=== PATIENT | male | born 1975 | race Caucasian/White ===

== ENCOUNTER 2017-03-31 23:14 | Emergency (ER) | payer BC ==
[2017-03-31 23:28] VITALS: BP 134/94
--- NOTE | 2017-03-31 23:28 | EDM.PDOC ---
ED HPI GENERAL MEDICAL PROBLEM - General Chief Complaint: Upper Extremity Injury/Pain Stated Complaint: HAD CORTIZONE SHOT IN LEFT ELBOW- EXTREME PAIN Time Seen by Provider: 03/31/17 23:17 - History of Present Illness INITIAL COMMENTS - FREE TEXT/NARRATIVE: HISTORY AND PHYSICAL: History of present illness: Patient's 41-year-old male status post cortisone injection to his elbows bilaterally he's had these many times in the past he now has swelling ecchymosis that he is not experiencing some prior ones in his left elbow with increased pain. Review of systems: As per history of present illness and below otherwise all systems reviewed and negative. Past medical history: As per history of present illness and as reviewed below otherwise noncontributory. Surgical history: As per history of present illness and as reviewed below otherwise noncontributory. Social history: No reported history of drug or alcohol abuse. Family history: As per history of present illness and as reviewed below otherwise noncontributory. Physical exam: HEENT: Atraumatic, normocephalic, pupils reactive, negative for conjunctival pallor or scleral icterus, mucous membranes moist, throat clear, neck supple, nontender, trachea midline. Lungs: Clear to auscultation, breath sounds equal bilaterally, chest nontender. Heart: S1S2, regular, negative for clicks, rubs, or JVD. Abdomen: Soft, nondistended, nontender. Negative for masses or hepatosplenomegaly. Negative for costovertebral tenderness. Pelvis: Stable nontender. Genitourinary: Deferred. Rectal: Deferred. Extremities: Left elbow with some small ecchymosis in the region of the injection swelling and minimal range of motion secondary to pain no significant erythema no crepitation or point tenderness right elbow unremarkable Neuro: Awake, alert, oriented. Cranial nerves II through XII unremarkable. Cerebellum unremarkable. Motor and sensory unremarkable throughout. Exam nonfocal. Diagnostics: X-ray left elbow CBC CMP CRP ESR Therapeutics: Toradol 60 mg IM Impression: #1 chronic bilateral elbow pain #2 status post cortisone injection bilateral elbow Definitive disposition and diagnosis as appropriate pending reevaluation and review of above. - Related Data Allergies Allergy/AdvReac Type Severity Reaction Status Date / Time No Known Allergies Allergy Verified 02/07/16 20:27 Past Medical History HEENT History: Reports: Other (See Below) Other HEENT History: tonsilitis Cardiovascular History: Reports: None Respiratory History: Reports: Bronchitis, Recurrent Gastrointestinal History: Reports: GERD Genitourinary History: Reports: Renal Calculus Neurological History: Reports: Head Trauma Psychiatric History: Reports: None Endocrine/Metabolic History: Reports: None Hematologic History: Reports: None Immunologic History: Reports: None Oncologic (Cancer) History: Reports: None Dermatologic History: Reports: None - Infectious Disease History Infectious Disease History: Reports: Chicken Pox - Past Surgical History Musculoskeletal Surgical History: Reports: Shoulder Surgery, Other (See Below) Social & Family History - Tobacco Use Smoking Status *Q: Current Every Day Smoker Years of Tobacco use: 30 Packs/Tins Daily: 1 Used Tobacco, but Quit: No Second Hand Smoke Exposure: Yes - Alcohol Use Days Per Week of Alcohol Use: 2 Number of Drinks Per Day: 6 Total Drinks Per Week: 12 - Recreational Drug Use Recreational Drug Use: No ED ROS GENERAL - Review of Systems Review Of Systems: ROS reveals no pertinent complaints other than HPI. ED EXAM, GENERAL - Physical Exam Exam: See Below (See dictation) Course - Vital Signs Last Recorded V/S: Last Vital Signs Temp 36.7 C 03/31/17 23:21 Pulse 96 03/31/17 23:21 Resp 18 03/31/17 23:21 BP 134/94 H 03/31/17 23:21 Pulse Ox 96 03/31/17 23:21 - Orders/Labs/Meds Orders: Active Orders 24 hr Category Date Time Status Elbow Min 3V Lt [CR] Stat Exams 03/31/17 23:33 Taken Labs: Laboratory Tests 03/31/17 03/31/17 03/31/17 Range/Units 23:41 23:41 23:41 WBC 8.83 (4.0-11.0) K/uL RBC 4.83 (4.50-5.90) M/uL Hgb 14.7 (13.0-17.0) g/dL Hct 43.3 (38.0-50.0) % MCV 89.6 (80.0-98.0) fL MCH 30.4 (27.0-32.0) pg MCHC 33.9 (31.0-37.0) g/dL RDW Std Deviation 43.8 (28.0-62.0) fl RDW Coeff of Jason 13 (11.0-15.0) % Plt Count 271 (150-400) K/uL MPV 10.00 (7.40-12.00) fL Neut % (Auto) 56.7 (48.0-80.0) % Lymph % (Auto) 33.0 (16.0-40.0) % Barron % (Auto) 7.9 (0.0-15.0) % Eos % (Auto) 1.9 (0.0-7.0) % Baso % (Auto) 0.5 (0.0-1.5) % Neut # (Auto) 5.0 (1.4-5.7) K/uL Lymph # (Auto) 2.9 H (0.6-2.4) K/uL Barron # (Auto) 0.7 (0.0-0.8) K/uL Eos # (Auto) 0.2 (0.0-0.7) K/uL Baso # (Auto) 0.0 (0.0-0.1) K/uL Nucleated RBC % 0.0 /100WBC Nucleated RBCs # 0 K/uL ESR 4 (0-14) mm/hr Sodium 138 (136-146) mmol/L Potassium 4.3 (3.5-5.1) mmol/L Chloride 105 (98-110) mmol/L Carbon Dioxide 23 (21-31) mmol/L BUN 12 (6.0-23.0) mg/dL Creatinine 1.0 (0.6-1.5) mg/dL Est Cr Clr Drug Dosing 106.85 mL/min Estimated GFR (MDRD) > 60.0 ml/min Glucose 107 (60-110) mg/dL Calcium 9.7 (8.8-10.8) mg/dL Total Bilirubin 0.2 (0.1-1.5) mg/dL AST 20 (5-40) IU/L ALT 41 (8-54) IU/L Alkaline Phosphatase 63 (40-150) C-Reactive Protein 0.23 (0.0-0.5) mg/dL Total Protein 7.2 (6.0-8.0) g/dL Albumin 4.2 (3.5-5.0) g/dL Globulin 3.0 (2.0-3.5) g/dL Albumin/Globulin Ratio 1.4 (1.3-2.8) Meds: Medications Discontinued Medications Generic Name Dose Route Start Last Admin Trade Name Charly PRN Reason Stop Dose Admin Ketorolac Tromethamine 60 mg 03/31/17 23:33 03/31/17 23:59 Toradol IM 03/31/17 23:34 60 mg ONETIME ONE Administration Departure - Departure Time of Disposition: 00:31 Disposition: Home, Self-Care 01 Condition: Good Clinical Impression: Elbow pain - Discharge Information Forms: ED Department Discharge Additional Instructions: The following information is given to patients seen in the emergency department who are being discharged to home. This information is to outline your options for follow-up care. We provide all patients seen in our emergency department with a follow-up referral. The need for follow-up, as well as the timing and circumstances, are variable depending upon the specifics of your emergency department visit. If you don't have a primary care physician on staff, we will provide you with a referral. We always advise you to contact your personal physician following an emergency department visit to inform them of the circumstance of the visit and for follow-up with them and/or the need for any referrals to a consulting specialist. The emergency department will also refer you to a specialist when appropriate. This referral assures that you have the opportunity for followup care with a specialist. All of these measure are taken in an effort to provide you with optimal care, which includes your followup. Under all circumstances we always encourage you to contact your private physician who remains a resource for coordinating your care. When calling for followup care, please make the office aware that this follow-up is from your recent emergency room visit. If for any reason you are refused follow-up, please contact the [facility] emergency department at and asked to speak to the emergency department charge nurse. Follow-up primary medical doctor/orthopedist as discussed return as needed as discussed - My Orders Last 24 Hours: My Active Orders 03/31/17 23:33 Elbow Min 3V Lt [CR] Stat - Assessment/Plan Last 24 Hours: My Active Orders 03/31/17 23:33 Elbow Min 3V Lt [CR] Stat
[2017-03-31] MEDS ORDERED: Ketorolac 60 MG/2 ML SDV IM ONE (23:33)
[2017-04-01 00:20] LABS: CHLORIDE,CL 105 mmol/L (98-110); SODIUM,NA 138 mmol/L (136-146)
--- NOTE | 2017-04-01 10:28 | CR ---
EXAM DATE: 03/31/17 PATIENT'S AGE: 41 Patient: ANTONIO YODER Facility: [place], [place] Site . Site : [id number] Study: XRay Extremity elbow [id number]/27/2017 11:52:32 PM Ordering Physician: Ivan Lainez Final Report: INDICATION: Left elbow pain . History of cortisone shot earlier today TECHNIQUE: Three views left elbow, 11:42 p.m. COMPARISON: 1:18 p.m. FINDINGS: Bones: Alignment is normal. No fractures or bone lesions. Joint spaces: Unremarkable. Soft tissues: Unremarkable. IMPRESSION: Negative. Dictated by Zak Calloway MD @ 04/01/2017 12:03:48 AM Dictated by: Zak Calloway MD @ 04/01/2017 00:03:56 (Electronic Signature) Report Signed by Proxy. [facility]ITAL[facility]leg[facility]
== END 2017-04-01 00:40 | disposition home or self-care (01) ==
LOC: MW.ED 23:14
DX: S50.02XA Contusion of left elbow, initial encounter (principal); Z98.890 Other specified postprocedural states; F17.210 Nicotine dependence, cigarettes, uncomplicated; K21.9 Gastro-esophageal reflux disease without esophagitis; X58.XXXA Exposure to other specified factors, initial encounter; M25.521 Pain in right elbow; M25.522 Pain in left elbow
CPT/HCPCS: 36415; 73080; 80053; 85025; 85652; 86140; 96372; 99283; J1885

== ENCOUNTER 2024-03-30 08:04 | Emergency (ER) | payer BC ==
[2024-03-30 08:42] LABS: BASOPHILS ABSOLUTE AUTO 0.04 K/uL (0.00-0.20); BASOPHILS PERCENT AUTO 0.6 % (0.0-1.0); EOSINOPHILS ABSOLUTE AUTO 0.23 K/uL (0.00-0.45); EOSINOPHILS PERCENT AUTO 3.3 % (0.0-6.0); HEMATOCRIT 41.9 % (42.0-52.0); HEMOGLOBIN 14.1 g/dL (14.0-18.0); IMMATURE GRAN ABSOLUTE AUTO 0.01 K/uL (0.00-0.05); IMMATURE GRAN PERCENT AUTO 0.1 % (0.0-0.4); LYMPHOCYTES ABSOLUTE AUTO 1.48 K/uL (1.00-4.80); LYMPHOCYTES PERCENT AUTO 21.1 % (24.0-44.0); MEAN CORPUSCULAR HEMOGLOBIN 29.9 pg (28.0-32.0); MEAN CORPUSCULAR HGB CONC 33.7 g/dL (32.0-36.0); MEAN PLATELET VOLUME 9.5 fL (9.4-12.4); MONOCYTES ABSOLUTE AUTO 0.65 K/uL (0.00-0.80); MONOCYTES PERCENT AUTO 9.3 % (0.0-8.0); NEUTROPHILS ABSOLUTE AUTO 4.59 K/uL (1.80-7.70); NEUTROPHILS PERCENT AUTO 65.6 % (41.0-71.0); PLATELET COUNT,PLT 289 K/uL (150-400); RED BLOOD CELL COUNT 4.71 M/uL (4.52-5.90)
[2024-03-30] MEDS: Sodium Chloride 0.9% 2.5 ML Syringe FLUSH PRN (08:53)
[2024-03-30] MEDS: Aspirin 81 MG Tab.Chew PO ONE (08:53)
[2024-03-30] MEDS: Sodium Chloride 0.9% 10 ML Syringe FLUSH PRN (08:53)
[2024-03-30 08:59] LABS: A/G RATIO 0.9 (0.9-1.6); ALBUMIN 3.4 g/dL (3.4-5.0); BILIRUBIN TOTAL 0.4 mg/dL (0.2-1.0); CALCIUM 8.8 mg/dL (8.5-10.1); CARBON DIOXIDE,CO2 25.2 mmol/L (21.0-32.0); CREATININE 1.1 mg/dL (0.8-1.3); EST CRCL DRUG DOSING (CG) 90.14 mL/min; POTASSIUM,K 3.7 mmol/L (3.5-5.1)
[2024-03-30] MEDS: Iopamidol 755 MG/ML 500 ML Multipack Bottle IVPUSH STA (09:29)
[2024-03-30 11:44] VITALS: PULSE 79
[2024-03-30 12:15] VITALS: BP 142/105
== END 2024-03-30 12:13 | disposition home or self-care (01) ==
LOC: MW.ED 08:04
DX: R07.89 Other chest pain (principal); Z75.8 Other problems related to medical facilities and other health care; Z79.899 Other long term (current) drug therapy
CPT/HCPCS: 36415; 71275; 80053; 83690; 84484; 85025; 93005; 99285; A9270; J3490; Q9967; 93010; 99283